=== PATIENT | male | born 1980 | race Caucasian/White ===

== ENCOUNTER 2017-08-13 08:52 | Emergency (ER) | payer OTHER ==
[~2017-08-13] VITALS: Ht 177.8 cm; Wt 74.8 kg
[2017-08-13] MEDS ORDERED: ZITHROMAX500 MG PO (12:06)
[2017-08-13] MEDS ORDERED: TOBREX5 ML OP (12:06)
== END 2017-08-13 12:34 | disposition home or self-care (01) ==
LOC: ER 08:52
DX: J06.9 Acute upper respiratory infection, unspecified (principal); H10.89 Other conjunctivitis; J32.8 Other chronic sinusitis